=== PATIENT | female | born 1975 | race Caucasian/White ===

== ENCOUNTER 2024-08-31 12:00 | Emergency (ER) | payer OTHER, SELFPAY ==
[2024-08-31 12:12] VITALS: BP 142/76; PULSE 119; RESP 16; TEMP 36.6; O2SAT 99
--- NOTE | 2024-08-31 12:53 | ED.URI ---
HPI - URI/Sore Throat General Chief Complaint: Upper Respiratory Infection Stated Complaint: Cough/Chest Congestion Time Seen by Provider: 08/31/24 12:54 Source: patient and RN notes reviewed Mode of arrival: ambulatory Limitations: no limitations History of Present Illness HPI Narrative: 49-year-old female presents with concern of for 6 day history of cough, productive cough, upper chest discomfort, headache, fatigue. She denies fever. Reports sweats. Reports he has been taking NyQuil at nighttime. MD elicited complaint: cough and nasal congestion Related Data Home Medications ?Medication ?Instructions ?Recorded ?Confirmed ?Last Taken ?Type escitalopram oxalate 10 mg tablet mg 08/31/24 Unknown History hydrochlorothiazide 12.5 mg capsule mg 08/31/24 Unknown History lifitegrast 5 % eye drops in a drp 08/31/24 Unknown History dropperette (Xiidra) pantoprazole 40 mg tablet,delayed mg PO 08/31/24 Unknown History release topiramate 50 mg tablet mg 08/31/24 Unknown History Allergies Allergy/AdvReac Type Severity Reaction Status Date / Time levofloxacin Allergy Severe JOINT PAIN Verified 08/31/24 12:49 Tetracyclines Allergy Severe HANDS Verified 08/31/24 12:49 RED/BLISTERED Review of Systems Review of Systems: CONSTITUTIONAL: Reports malaise, sweats EYES: Denies visual changes, redness, or discharge. ENT: Reports rhinorrhea, congestion CARDIOVASCULAR: Denies chest pain, palpitations, or edema. RESPIRATORY: Reports productive cough. Denies dyspnea. GASTROINTESTINAL: Denies abdominal pain, nausea, vomiting, diarrhea SKIN: Denies rash or itching. MUSCULOSKELETAL: Denies myalgia. NEUROLOGIC: Denies headache. All systems reviewed & are unremarkable except as noted in HPI and below PMFSH Comments At time of signature, agree with nursing past medical, surgical, social and family history. There is no relevant family history pertinent to the presenting complaint Exam Narrative: GENERAL: Well-appearing, well-nourished, and in no acute distress. HEAD: Normocephalic EYES: PERRLA, conjunctivae clear ENT: Nares clear, turbinates edematous and erythematous, clear discharge. Mucous membranes moist. TM pearly downs with dull light reflex bilaterally; no tragal tenderness. Oropharynx not erythematous without lesions. Tonsils not enlarged and without exudate, no drooling, no hoarseness, no trismus, uvula midline. NECK: Supple. No lymphadenopathy CHEST: Clear to auscultation, breath sounds equal. No wheezing, rhonchi, rales, or stridor. No respiratory distress, speaks in full sentences. HEART: Regular rate and rhythm. No murmur heard. SKIN: Warm, dry, no rash. NEURO: Alert and oriented x3. PSYCH: Normal mood and affect Course Course Emergency Course: Patient is aware of diagnosis, understands and agrees to treatment plan. Anticipatory guidance given. Patient agrees to follow-up as directed and is aware of reasons to seek care at the emergency department. Portions of this record may have been created with voice recognition software Level of Care: Express Care Visit Vital Signs Vital signs: Vital Signs Temperature 98 F 08/31/24 12:12 Pulse Rate 119 H 08/31/24 12:12 Respiratory Rate 16 08/31/24 12:12 Blood Pressure 142/76 H 08/31/24 12:12 Pulse Oximetry 99 08/31/24 12:12 Oxygen Delivery Room Air 08/31/24 12:12 Temperature 98 F 08/31/24 12:12 Pulse Rate 119 H 08/31/24 12:12 Respiratory Rate 16 08/31/24 12:12 Blood Pressure 142/76 H 08/31/24 12:12 Pulse Oximetry 99 08/31/24 12:12 Oxygen Delivery Room Air 08/31/24 12:12 Reviewed. MDM - URI/Sore Throat MDM Narrative Medical decision making narrative: Differential diagnosis considered: Hannah virus, strep pharyngitis, allergic rhinitis, upper respiratory tract infection, sinusitis, rhinosinusitis, nasopharyngitis. viral pharyngitis, otitis media, otitis externa, pneumonia, bronchitis, viral cough syndrome, viral syndrome, and influenza. Exam findings show no acute concerns or changes; patient is non-toxic appearing and is in no distress. Patient is appropriate for outpatient treatment and follow-up. Lab Data Attestation: I reviewed the patient's lab results. Labs: Lab Results 08/31/24 Range/Units 12:56 POC Influenza A Ag Negative (Negative) POC Influenza B Ag Negative (Negative) POC SARS CoV-2 Ag Negative (Negative) Critical Care Time Critical Care Time Critical Care Time: No Discharge Plan Discharge Clinical Impression: Upper respiratory infection Patient Disposition: Home, Self-Care Condition: Stable Instructions: Upper Respiratory Infection (ED) Additional Instructions: Your rapid COVID and flu tests are negative Your rapid strep swab was negative today at [facility]. A throat culture will be sent to the laboratory for further testing. If the test is positive, you will receive a phone call within 48 hours and an appropriate antibiotic will be initiated at that time. Your symptoms are likely due to a viral illness, which is not treated with antibiotics. Viral symptoms can be present for up to a few weeks. -Alternate Tylenol and Motrin per package directions for fever or pain. -Antihistamine medication such as Benadryl at night and Zyrtec during the day can help improve symptoms. -prescribed cough medicine may make you drowsy. If you cannot you drowsy please take Mucinex and D on the which she can purchase [id number], instead of the prescribed cough medicine -Eat and drink things that are easy to swallow, like tea or soup, or popsicles to suck on. -Oral rinses such as: Salt water gargles and/or may use topical anesthetic (eg. Chloraseptic spray) or lozenges to relieve dryness or throat pain). -Frequent hand washing or hand emblem drawer in is one of the best ways to prevent spread of infection. -Follow up with primary care provider in 2-3 days if condition is not improving; or seek ER visit if you have trouble breathing, cannot drink enough fluids, have muffled voice, difficulty opening your mouth, or severe swelling. Patient Language: Nepali Prescriptions: New pseudoephedrine HCl [12 Hour Decongestant] 120 mg tablet extended release 120 mg PO Q12H PRN (Reason: nasal congestion) Qty: 20 0RF promethazine-DM 6.25-15 mg/5 mL syrup 5 ml PO Q4-6H PRN (Reason: cough) Qty: 120 0RF No Action pantoprazole 40 mg tablet,delayed release (DR/EC) PO hydrochlorothiazide 12.5 mg capsule escitalopram oxalate 10 mg tablet topiramate 50 mg tablet Xiidra 5 % dropperette Follow-up/Referrals: May,RADHA Orosco [Primary Care Provider] - Stand Alone Forms: Work/School Release IP Time of Disposition: 13:00
[2024-08-31 12:58] LABS: EDCOVIDSCREEN Negative (Negative); EDINFLUASCREEN Negative (Negative); EDINFLUBSCREEN Negative (Negative)
== END 2024-08-31 13:03 | disposition home or self-care (01) ==
PROVIDERS: Emergency Provider Nurse Practitioner; PCP Physician Assistant
DX: J06.9 Acute upper respiratory infection, unspecified (principal); Z20.822 Contact with and (suspected) exposure to COVID-19; K21.9 Gastro-esophageal reflux disease without esophagitis
CPT/HCPCS: 87426; 87804; 99203; G0463